=== PATIENT | female | born 1960 | race Caucasian/White ===

== ENCOUNTER 2025-02-09 09:19 | Outpatient (AMB) | payer BC, SELFPAY ==
[2025-02-09 09:48] VITALS: BP 127/85; PULSE 77; RESP 17; TEMP 36.5; O2SAT 96; BMI 41.1
--- NOTE | 2025-02-09 09:48 | AMB.GYNCLNOT ---
Vital Signs 02/09/25 09:48 Height 1.65 m Height Method Measured Weight 112.151 kg Weight Measurement Method Standing Scale BMI 41.1 BP 127/85 H Blood Pressure Source Automatic Cuff Blood Pressure Location Right Upper Arm Position Sitting Respiration 17 Pulse 77 Pulse Source Monitor Temp 97.7 F Temp Source Temporal Artery Scan Pulse Oximetry (%) 96 Oxygen Delivery Method Room Air Allergies/Home Meds Allergies & Medications Allergies No Known Allergies Allergy (Verified 02/09/25 09:49) Intake Visit Data Collection New Patient or Established: New Patient (never been to [facility]) Reason for Visit:: ANNUAL EXAM Seen by Clinical Staff ONLY (RN/MA): No [employer] Instructor Required: No Do You Feel Safe at Home: Yes Authorities Contacted: N/A PCP or OBGYN visit in last 3 months: No Hx Now: No Are you currently on any form of Control: No Pain Present Currently: No Pain Scale Used: [place]/Numerical Pain scale:: 0 Smoking Status Smoking Status: Never smoker 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 1. Little interest or pleasure in doing things: not at all 2. Feeling down, depressed, or hopeless: not at all Total score: 0 PHQ-9 3. Trouble falling or staying asleep, or sleeping too much: Not at all 4. Feeling tired or having little energy: Not at all 5. Poor appetite or overeating: Not at all 6. Feeling bad about yourself - or that you are a failure or have let yourself or your family down: Not at all 7. Trouble concentrating on things, such as reading the newspaper or watching television: Not at all 8. Moving or speaking so slowly that other people could have noticed? - Or the opposite - being so fidgety or restless that you have been moving around a lot more than usual: not at all 9. Thoughts that you would be better off or of hurting yourself in some way: Not at all Total score: 0 If you checked off any problems, how difficult have these problems made it for you to do your work, take care of things at home, or get along with other people?: not difficult at all Source: Developed by Drs. Jesus Boyd, Nancy Ramirez, Wagner Chahal and colleagues, with an educational tiesha from [employer]. Depression screen completed yes Social History Living Situation History Lives With: Spouse Housing: House Tobacco History Smoking Status: Never smoker Alcohol History Alcohol Intake: Never Domestic Abuse History Do You Feel Safe at Home: Yes Office Procedures [facility] Clinic LOC & Office Proc's Nursing/Assessment Patient Status: Initial/New Patient OB Clinic Nursing Assessment: Medication Reconciliation, Update PMH in EMR and Vital Signs OB Clinic Coordination of Care: Consent,records obtained, informed consent, 4+ Authorizations needed and Lab and Imaging orders Miscellaneous Interventions: Breast Exam and Pelvic no cultures New Patient Charge New Patient Point Assignment: 1114 New Patient Point Charge: CADDY MASTER Level 3 ([id number]) Assessment & Plan Diagnosis / Problem List (1) Encounter for Routine Gynecological Examination: Qualifiers: Gynecological examination findings: abnormal findings ABSENT Qualified Code(s): Z01.419 - Encounter for gynecological examination (general) (routine) without abnormal findings (2) Lichen sclerosus of vulva: Status: Acute (3) Recurrent candidiasis of vagina: Status: Acute
== END 2025-02-09 10:15 | disposition home or self-care (01) ==
LOC: HODSOBC 09:19
PROVIDERS: PCP Family Medicine; Referring Provider Family Medicine; Supervising Provider Obstetrics & Gynecology; Visit Provider Obstetrics & Gynecology
DX: Z01.411 Encounter for gynecological examination (general) (routine) with abnormal findings (principal); N90.4 Leukoplakia of vulva; B37.31 Acute candidiasis of vulva and vagina
CPT/HCPCS: 99203; G0463